=== PATIENT | female | born 1955 | race Caucasian/White ===

== ENCOUNTER 2017-08-11 19:19 | Inpatient (IN) | payer OTHER ==
[2017-08-11] VITALS (16 sets, daily range): BP systolic 90–125; BP diastolic 27–72
[~2017-08-11] VITALS: Ht 152.4 cm; Wt 160.3 kg
--- NOTE | ~2017-08-11 | CON ---
[place], [place] REPORT OF CONSULTATION NAME: KATTY ALBERTO UNIT #: [id number] ROOM: [facility] DOCTOR: CEDRICK SWIFT MD BIRTHDATE: [birth year] DOS: 08/12/2017 PULMONARY CONSULTATION, EVALUATION AND MANAGEMENT CONSULTATION REQUESTED BY: Hospitalist Services. REASON FOR CONSULTATION: For assessment of current change in mental status and acute respiratory failure. HISTORY OF PRESENT ILLNESS: A 61-year-old white female known to me from the past. The patient presented to the hospital Emergency Room. She has been noted with increased shortness of breath occurring for the past 2-3 weeks, but the symptoms have been noted gradually worsen. She has been known with history of congestive heart failure and treated with the diuretics. The patient's shortness breath has been noted significantly worsened, which has been noted progressive and noted severe worsening. The patient went to [facility], and this was noted severely worsened. The symptoms were also associated with chest pain which she described in the left side of chest region radiating to the arm. The diuresis occurred with exertion and relieved at rest, but the pain was described sharp at times. The patient was also noted with increased edema of the lower extremities. She denies any syncopal episodes associated with the current chest pain. Wheezing was noted mild at this time. She has arterial blood gases done as the patient noted unresponsive this morning with significant hypercapnia and reduced pH. She was started BiPAP by Dr. Baig, the patient with setting of 12/6 earlier. This has resulted in partial improvement in the wakefulness. The history from the patient was noted quite limited because of the use of the BiPAP at the present time. However, the patient denies symptoms of chest pain at this time and has not reported symptoms of hemoptysis. REVIEW OF SYSTEMS: CONSTITUTIONAL: This patient was noted with fatigue and tiredness occurring gradually. There were symptoms of fever and chills reported. EYES: Denies any burning, redness or tenderness. EAR, NOSE, THROAT SYMPTOMS: Denies sore throat, hoarseness, otalgia, postnasal drainage or epistaxis. CARDIOVASCULAR: Denies angina pain at this time, but noted with pain which she described similar to the unstable angina prior to admission. No symptoms of palpitations. Noted progressive edema of the lower extremities. GASTROINTESTINAL SYMPTOMS: No dysphagia, nausea, vomiting, diarrhea, abdominal pain, or hematemesis, but noted with symptoms of melena and has been with known history of hemorrhoids. GENITOURINARY SYMPTOMS: Denies any hematuria, dysuria, urinary hesitancy or suprapubic pain. MUSCULOSKELETAL SYMPTOMS: Chronic pain in the joints was reported. There was no acute worsening. SKIN: Denies any abnormal lesions or rashes except breakdown of the skin and the wound was described in the area of the left flank and the groin area with foul-smelling odor discharge. CENTRAL NERVOUS SYSTEM: General weakness and fatigue were reported without any focal neurologic deficit. [place], [place] REPORT OF CONSULTATION NAME: KATTY ALBERTO UNIT #: [id number] ROOM: [facility] DOCTOR: CEDRICK SWIFT MD BIRTHDATE: [birth year] Remaining systems were reviewed with the patient, they were noted all negative. PAST MEDICAL HISTORY: 1. Noted as history of congestive heart failure, but the systolic or diastolic was unknown, probably diastolic dysfunction reported. 2. 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 The lead was extracted from the patient as well as the pacemaker was also removed. There was no endocarditis reported. 3. Bacteremia. The patient with enterococcus. The patient with PICC line was also reported. 4. History of sick sinus syndrome. 5. Reported with COPD and bronchial asthma in the history listed by the primary care attending. 6. History of gastroesophageal reflux. 7. Gastrointestinal bleeding with hemorrhoids. 8. Gastroesophageal reflux. 9. Severe morbid obesity. 10. Paroxysmal atrial fibrillation. 11. Type 2 diabetes mellitus. 12. Vitamin D deficiency. 13. History of complete heart block. PAST SURGICAL HISTORY: The patient was reported as: 1. Cholecystectomy. 2. Colonoscopy. 3. D and C. 3. PICC line previously, which was removed. 4. Pacemaker insertion in the patient with sick sinus syndrome management. The patient later removed with planning of another pacemaker insertion after the improvement in the infection. SOCIAL HISTORY: The patient lives at home. She was reported nonsmoker, lifetime. There was no history of alcohol use or illicit drug use. FAMILY HISTORY: The patient's father at age of 6060 years old with myocardial infarction. Mother is living, 83 years old. HOME MEDICATIONS: Listed as use of ProAir HFA inhaler, Eliquis, vitamin D, Colace, Lasix, loratadine, metoprolol tartrate, omeprazole and other p.r.n. medications. DRUG ALLERGIES: REPORTED ALLERGY TO THE PENICILLINS. PHYSICAL EXAMINATION: GENERAL: A 61-year-old female who has been currently noted lying in the bed. The patient uses a BiPAP, full face mask, setting of 16/12, tidal volume about 250-350 mL. The respiratory recorded as 20. Height noted of a 5 feet, weight of 246 pounds, BMI 67.5 consistent with severe morbid obesity. VITAL SIGNS: The patient recorded as a temperature normal since admission, [place], [place] REPORT OF CONSULTATION NAME: KATTY ALBERTO UNIT #: [id number] ROOM: [facility] DOCTOR: MATHIEU MCKOY MD,CEDRICK BIRTHDATE: [birth year] respiratory rate of 28-14. Heart rate was noted as 112-97 with tachycardia, blood pressure 116/66-127/61. Intake 700, output ____ mL since admission. Pulse oxygen saturation on 2 liters nasal cannula was 99% saturation. Pulse oxygen saturation recorded the BiPAP previously as 93% saturation. HEENT: Limited exam; however, the neck was short and obese. Head was atraumatic. Eyes nonicterus. NECK: Supple. Decreased posterior pharyngeal space, high tongue base and crowding of soft tissue structures. CARDIOVASCULAR: S1, S2 is audible. LUNGS: The patient was noted with moderate general reduction in the breath sounds noted in the lungs bilaterally. ABDOMEN: Noted severe morbid obese. Superficial infection. SKIN: For the patient reported most likely related to either superimposed bacterial infection with a fungal infection involving the skin. Candidiasis would be considered. EXTREMITIES: The patient noted with edema. CENTRAL NERVOUS SYSTEM: Limited examination, the patient will be able to move upper and lower extremities with vocal commands. There was no gross focal neurologic deficit noted at the present time. MUSCULOSKELETAL SYMPTOMS: Noted without any acute deformities. LABORATORY DATA: PT/PTT was done yesterday shows a PT and PTT were normal. CBC of the patient that was done yesterday on admission reported as a normal WBC count, hemoglobin 10.2, hematocrit normal, platelet count were normal. CMP of the patient on 08/11/2017, BUN 37, creatinine 1.64. Glucose 119. Lactic acid 1.2. Troponin noted normal. ProBNP was 2802. CBC of the patient this morning, hemoglobin 9.5, hematocrit 32.4, WBC count normal, platelet count was normal. PT/PTT repeated again normal. Influenza A and B, nasal washing antigen negative today. CMP this morning, BUN 38, creatinine 1.60. Potassium was 5.2. Troponin additional 2 sets were noted normal. Arterial blood gas ____ this morning, pH of 7.19, pCO2 of 82, pO2 40.8, most likely is a venous gas. REVIEW OF THE RADIOLOGY DATA: The chest x-ray of the patient that was done this morning shows very limited study because of large body habitus and pannus covering lower portion of the chest as well with possibility of cardiomegaly with pulmonary edema, congestive heart failure would be considered. Whether there is a pleural fluid right side at this time, was unclear. IMPRESSION: 1. The patient will be currently admitted to the hospital noted with acute congestive heart failure with pulmonary edema with current symptom described with possibility of angina. 2. Superficial infection of the skin most likely due to fungal infection, superimposed bacterial infection cannot be excluded. 3. The patient with acute severe hypercapnic respiratory failure with acute hypoxia as well related to the congestive heart failure. 4. The patient with history of chronic obstructive pulmonary disease, bronchial asthma without any acute exacerbation at this time. 5. History of cardiac issue with dysrhythmias, infection with pacemaker, and others. [place], [place] REPORT OF CONSULTATION NAME: KATTY ALBERTO UNIT #: [id number] ROOM: [facility] DOCTOR: CEDRICK SWIFT MD BIRTHDATE: [birth year] 6. The patient with tachycardia with history of atrial fibrillation as well. 7. Possibility of bleeding with current symptoms. The patient was also reported with mild anemia. 8. Suspicion of obstructive sleep apnea for current large body habitus. PLAN OF TREATMENT: The patient stated that she had not been tested or diagnosed with obstructive sleep apnea disorder in the past. PLAN OF MANAGEMENT: Adjustment of the BiPAP has been made for change in the BiPAP settings of 18/8 to get a good ventilation and improvement in oxygenation. Arterial blood gas will be done 2 hours after the change of the BiPAP, the tidal volume has been increased from 350 mL to 550 mL to 600 mL with the rate was noted about 16-18. The patient will be given bronchodilators as needed. She has been already started intravenous antibiotics, vancomycin and cefepime. The cultures of the wound site to be done for assessment of fungal or bacterial infections. Other supportive therapy, plan and management to be changed based on progression of illness. Diuretic therapy, medical maintenance, congestive heart failure per Cardiology services will be continued. Deep venous thrombosis prophylaxis with SCDs could be given. The anticoagulation at this time placed on hold because of the current suspected gastrointestinal bleeding with previous evening on Eliquis. Thanks for allowing me to participate in the care of this patient. CEDRICK MURDOCK MD CM:CONSTR:REPORT OF CONSULTATION 1306 08/13/17 1345 interface
--- NOTE | ~2017-08-11 | CON ---
[place], [place] REPORT OF CONSULTATION NAME: KATTY ALBERTO UNIT #: [id number] ROOM: [facility] DOCTOR: RON COOPER,AUGUST BIRTHDATE: [birth year] DOS: 08/15/2017 HISTORY OF PRESENT ILLNESS: The patient is a 61-year-old morbidly obese female who was admitted on the August 11. She was stuck on her commode and unable to get up, and had to call emergency services. She has had progressively worsening shortness of breath and increasing edema over the last 2-3 weeks. She has been receiving BiPAP since admission and they have been trying to aggressively diurese her. She was on Lasix 80 mg IV every 8 hours and now she is on a Bumex drip. Her creatinine has been rising. She was initially afebrile, but she did have an infected wound on her left flank in one of her rolls. Cultures from that have grown fairly sensitive Proteus. She was initially on vancomycin and cefepime. The vancomycin was stopped. Cefepime was continued for the Proteus. Her admitting blood cultures were negative. Her influenza was negative. Her MRSA was screen negative. She spiked a temperature last night of 101, leading to an Infectious Diseases consult. Reviewing her imaging, which the x-rays are limited given the patient's size, she is 5 feet tall and 354 pounds, show cardiomegaly and pulmonary edema. History is obtained per review of the chart and discussion with nursing. The patient is complaining of dry mouth. She has had steadily decreasing urine output as well according to nursing. Temps are more low grade today to 99.3. Her cefepime was only at 1 gram IV daily given her renal insufficiency. Creatinine was 1.64 on admission and again today is up to 1.94. PAST MEDICAL HISTORY: As above as well as CHF, again morbid obesity, recent removal in May of this year of an infected pacemaker with infection by enterococcus. She completed ampicillin on June 24. She was scheduled to have replacement pacemaker scheduled on August 16, paroxysmal AFib, bradycardia and complete heart block, essential hypertension, chronic renal insufficiency, chronic respiratory failure, diabetes, morbid obesity. ALLERGIES: Include PENICILLINS and LATEX. FAMILY MEDICAL HISTORY: Father had an NV in his 60s. Mother is alive in her 80s. SOCIAL HISTORY: Nonsmoker, nondrinker. No illicit drug use. Normally lives at home. CURRENT MEDICATIONS: Bumex, vancomycin, Zaroxolyn, Lopressor, Eliquis, Humalog, vitamin D, cefepime, Claritin, Protonix, DuoNeb, nystatin topically, Zofran, Dulcolax, Tylenol. REVIEW OF SYSTEMS: Obtained mostly per nursing as the patient herself is currently on BiPAP, difficult to obtain review of systems from. Does have pain with her left flank wound. No emesis. No diarrhea. No rashes. She had originally presented with significant yeast, which has improved. Again, she was febrile yesterday to 101, more low grade today, remains on BiPAP, complaining of dry oral mucosa, has significant systemic edema. She did have an echocardiogram that showed no vegetation. [place], [place] REPORT OF CONSULTATION NAME: KATTY ALBERTO UNIT #: [id number] ROOM: [facility] DOCTOR: RON COOPER,AUGUST BIRTHDATE: [birth year] PHYSICAL EXAMINATION: VITAL SIGNS: Temperature 99.3, pulse 96, respirations 22, BP 125/78: GENERAL: A 61-year-old morbidly obese female, in no acute distress, on face mask BiPAP. HEAD, EYES, EARS, NOSE AND THROAT: Normocephalic, tacky mucosa. NECK: Supple. LUNGS: Clear to auscultation bilaterally, though difficult to auscultate given body habitus. HEART: Regular rhythm. Unable to appreciate murmur. Again, difficult to auscultate given body habitus. ABDOMEN: Soft, huge, pitting edema of the pannus and flanks. EXTREMITIES: With significant edema of lower extremities as well. No signs of cellulitis. She has [address] No phlebitis. Left flank wound is 1-2 cm in depth, fibrotic with foul odor and some surrounding induration, a small amount of purulent discharge. SKIN: Otherwise warm, dry, free of rashes. ASSESSMENT AND PLAN: Infected left flank wound. She needs to have anaerobic coverage. If frequently does not grow from swab cultures, would benefit from debridement. She is being followed by Dr. Cabrera with Surgery, as removal of the tissue would aid in clearing the infection. Her fever of 101 is likely due to volume contraction from aggressive diuresis. She is now currently on a Bumex drip at this point. Her methicillin-resistant Staphylococcus aureus screen was negative. We will stop the vancomycin. We could narrow her antibiotics to Ancef and Flagyl. She did have gram-positive cocci in pairs on the culture as well. This may be again anaerobe that did not grow out that was on the Gram stain. Case discussed with Dr. Itz Escalante. EMELY RON, KENNETH ITZ ESCALANTE MD CM:CONSTR:REPORT OF CONSULTATION 1750 08/16/17 0245 interface
--- NOTE | ~2017-08-11 | PR ---
[place], [place] PROGRESS NOTE NAME: KATTY ALBERTO UNIT #: [id number] ROOM: [facility] DOCTOR: MATHIEU MCKOY MD,CEDRICK BIRTHDATE: [birth year] DOS: 08/15/2017 SUBJECTIVE: She remains comfortable at this time, lying in the bed in the Intensive Care Unit. She has not been noted symptoms of chest pain or hemoptysis. Denies symptoms of abdominal pain. Denies symptoms of nausea or vomiting. Denies any blurry vision or headache or diplopia. Remaining systems were reviewed, they were noted all negative. She has been using the BiPAP at this time and appeared to be comfortable lying on the bed. OBJECTIVE: VITAL SIGNS: She was noted a fever low grade of 100.8-101 degree Fahrenheit. Afebrile. Respiratory rate 21-26. The heart rate of 96-102, blood pressure 116/55-125/70. Pulse oxygen saturation on 40% oxygen 96% saturation. A nasal cannula supplementation oxygen 85% saturation. HEENT: Head was atraumatic. Eyes nonicterus. NECK: Supple. It was obese. CARDIOVASCULAR SYSTEM: S1, S2 is audible. LUNGS: General reduction in breath sounds bilaterally. ABDOMEN: Soft, nontender. EXTREMITIES: Chronic obesity. SKIN VISIBLE: No lesions or rashes. MUSCULOSKELETAL SYMPTOMS: Without any acute deformities. CENTRAL NERVOUS SYSTEM: The patient appeared to be grossly intact. LABORATORY DATA: Chest x-ray was noted with possibility of pulmonary edema and/or infiltration, superimposed cannot be completely excluded very limited study noted with very large body habitus. Previous wound culture has been noted Proteus mirabilis. IMPRESSION: 1. The patient who has been noted with acute persistent respiratory failure with hypercapnia. 2. Severe morbid obesity. 3. Wound infection of the skin. 4. Possibility of congestive heart failure, pulmonary edema along with pneumonia superimposed cannot be completely excluded. 5. Fever was noted intermittently as well. PLAN OF MANAGEMENT: The patient is currently getting the intravenous cefepime, which has been previously given. She was started on vancomycin in addition to the continuation gram-negative coverage. Monitor culture results. Obtain blood cultures if not done for today with the fever. Usual care, other supportive therapy, plan of management and other care. Additional treatment changes need to be made based on the progression of the illness. [place], [place] PROGRESS NOTE NAME: KATTY ALBERTO UNIT #: [id number] ROOM: [facility] DOCTOR: MATHIEU MCKOY MD,CEDRICK BIRTHDATE: [birth year] CEDRICK MURDOCK MD CM:PNBILL [id number] CEDRICK MCKOY MD 08/15/172113 interface
--- NOTE | ~2017-08-11 | PR ---
[place], [place] PROGRESS NOTE NAME: KATTY ALBERTO UNIT #: [id number] ROOM: [facility] DOCTOR: MATHIEU MCKOY MD,CEDRICK BIRTHDATE: [birth year] DOS: 08/16/2017 SUBJECTIVE: She has been noted awake and alert this morning, using oxygen supplementation nasal cannula, used the BiPAP last night, has not been reported any symptoms of chest pain. She has not been feeling well this morning. Denies any abdominal pain, nausea, vomiting or diarrhea. She has not been noted with any evidence of hypotension. The temperature curve noted to be afebrile. Mild tachycardia has been noted intermittently. She was given intravenous Bumex drip in the last 24 hours with suboptimal diuresis noted, total of 675 mL urinary output was noted. Remaining systems were reviewed. They were noted all negative. PHYSICAL EXAMINATION: VITAL SIGNS: Temperature 99.4 degree Fahrenheit, normal temperature, respiratory rate 22-19, heart rate of 107, blood pressure 124/53-107/54. Pulse oxygen saturation on 2 liters nasal cannula 96% saturation. HEENT: Chronic obesity. Head was atraumatic. Eyes, nonicterus. NECK: Supple. CARDIOVASCULAR: S1, S2 is audible. LUNGS: The patient was noted with moderate decreased breath sounds bilaterally. ABDOMEN: Severely obese. Bowel sounds present. EXTREMITIES: The patient was noted with minimal edema. VISIBLE SKIN: No lesions or rashes. MUSCULOSKELETAL: Without any acute deformities. CENTRAL NERVOUS SYSTEM: No focal deficit. LABORATORY DATA: BMP today: BUN 52, creatinine 2.18, glucose 156. Remaining electrolytes normal. CBC: Hemoglobin 9, hematocrit 31.0, WBC count and platelet count was normal. Arterial blood gas 2 liters, pH of 7.25, pCO2 of 67, pO2 59.9. IMPRESSION: 1. The patient who has been currently noted with persistent acute on chronic hypercapnic respiratory failure, hypoxia with congestive heart failure and pulmonary edema. 2. Severe morbid obesity, suspected obstructive sleep apnea disorder. 3. History of heart block, past pacemaker, which was removed. 4. Localized infection of the skin was also noted. PLAN OF MANAGEMENT: Continuation of the bronchodilators, oxygen supplementation and use of the BiPAP with previous settings most of the time. The patient has been ordered and consulted by the Nephrology services, has pending consultation at this time to assess the patient's acute kidney injury, suboptimal diuresis. Continue in the meantime, other supportive therapy, plan of management and care plan. Usual care. [place], [place] PROGRESS NOTE NAME: KATTY ALBERTO UNIT #: [id number] ROOM: [facility] DOCTOR: CEDRICK SWIFT MD BIRTHDATE: [birth year] CEDRICK MURDOCK MD CM:PNTRANS [id number] [id number] CEDRICK MCKOY MD 08/17/17 0039 interface
--- NOTE | ~2017-08-11 | CON ---
[place], [place] REPORT OF CONSULTATION NAME: KATTY ALBERTO UNIT #: [id number] ROOM: [facility] DOCTOR: JUSTINE SHELTON MD BIRTHDATE: [birth year] DOS: 08/12/2017 REASON FOR CONSULTATION: Acute heart failure. HISTORY OF PRESENT ILLNESS: The patient is a 61-year-old woman who does have a long history of conduction system disorder, paroxysmal atrial fibrillation and sick sinus syndrome. She also has morbid obesity and chronic heart failure with normal systolic function and ejection fraction. She is typically followed by the [facility] of the [facility] in [place]. She presented to the hospital with acute heart failure and heart block in May 2015. She was on beta blockers and amiodarone at that time. The antiarrhythmics were stopped and dual chamber pacemaker was inserted. She has been maintained on Xarelto throughout this time. In 05/2017, she was seen at the [facility] with an acute illness. Blood cultures were positive for gram-positive cocci in chain in 2 out of 2 bottles. She was transferred to the [facility] where she underwent a lead extraction and pacemaker device extraction for pacemaker infection. A KONG done at that time did not show evidence for endocarditis. She was treated with ampicillin intravenously via PICC line for enterococcal bacteremia from May until 06/24/2017. The PICC line was removed at that time. She was subsequently cleared to have her pacemaker reinserted. She was evaluated by Dr. Angel Barbour on 06/09/2017 as an outpatient. 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 After she was cleared by Infectious Disease, plans were made for her to undergo insertion of a new dual chamber pacemaker in the right subclavian fossa on 07/23/2017. For some reason, the procedure was delayed and the pacemaker has not yet been reimplanted but she states that she is scheduled to have the device placed on 08/16/2017. The patient presented to the Emergency Room yesterday with progressively worsening dyspnea over 2-3 weeks. She was given furosemide in the Emergency Room and her chest x-ray did show evidence for vascular congestion. She was diuresed and admitted to the Intensive Care Unit. Overnight, she did develop worsening sensorium and decreased level of consciousness. This morning, she is barely arousable. A stat blood gas done this morning showed a pH of 7.19 with a pCO2 of 82.6 and a pO2 of 40.8. She was felt to have an acute respiratory acidosis and acute on chronic hypercarbic respiratory failure. She has been placed on BiPAP and a repeat blood gas is pending. PAST MEDICAL HISTORY: Includes: 1. Conduction system disorder with paroxysmal atrial fibrillation, bradycardia, and complete heart block. 2. Essential hypertension. 3. Chronic renal insufficiency. 4. Chronic respiratory failure. 5. Chronic heart failure with preserved ejection fraction. 6. History of pacemaker for complete heart block inserted 05/2015. 7. Pacemaker system removal 05/2017 for enterococcal bacteremia. [place], [place] REPORT OF CONSULTATION NAME: KATTY ALBERTO UNIT #: [id number] ROOM: [facility] DOCTOR: JUSTINE SHELTON MD BIRTHDATE: [birth year] 8. Diabetes mellitus. 9. Morbid obesity. REVIEW OF SYSTEMS: Currently impossible since the patient is obtunded and not responding appropriately to questions. MEDICATIONS PRIOR TO ADMISSION: Albuterol 2 puffs q.i.d., acetaminophen p.r.n., apixaban 5 mg b.i.d., cholecalciferol 1000 units daily, docusate 100 mg daily, furosemide 40 mg p.o. daily, loratadine 10 mg daily, metoprolol tartrate 75 mg p.o. b.i.d., multivitamin once a day, omeprazole 40 mg daily. ALLERGIES: The patient lists allergies to PENICILLINS and LATEX. FAMILY HISTORY: The patient's father of a myocardial infarction in his 60s. Her mother is alive in her 80s. SOCIAL HISTORY: The patient does not smoke, use alcohol or illicit drugs. PHYSICAL EXAMINATION: GENERAL: The patient is a morbidly obese white female who is obtunded but responds to voice and pain. VITAL SIGNS: Pulse is 100 and irregularly irregular. Blood pressure is 127/61, respiratory rate is 28. She weighs 156.9 kg and has a body mass index of 67.6. HEENT: Normocephalic and atraumatic. Extraocular muscles are intact. Sclerae are clear. Oral mucosa is moist. Tongue is midline. NECK: Supple. I could not determine if she had jugular distention because of fat in her neck. LUNGS: Respirations are somewhat labored and tachypneic. She does have markedly decreased breath sounds bilaterally. CARDIOVASCULAR: Her heart has distant tones. She does have an irregularly irregular rhythm. I could not tell if she had gallops or murmurs. ABDOMEN: Massively obese. She does have skin over her abdomen and thighs. She does have intertrigo, especially in the right groin area. Nurses report that she does have other lesions in her skin folds as well and she is malodorous on exam. EXTREMITIES: Do show 3-4+ edema of the legs. Pedal pulses could not be felt. LABORATORY DATA: I reviewed the electrocardiogram, which showed atrial fibrillation with a rate of about 100. There are nonspecific ST and T-wave changes present. Hemoglobin is 9.5 with hematocrit 32.4, white count is 7000, platelet count 201,000. Sodium is 140, potassium 5.2, chloride 105, CO2 29, BUN 38, creatinine 1.6. Serial troponin levels have been unremarkable. TSH is 2.26. ProBNP is 2802. Total protein is 8.3 with an albumin of 2.3. A stat blood gas this morning shows a pH of 7.19, pCO2 of 82.6, pO2 of 40.8, bicarbonate of 30.4. An echocardiogram was done this morning and I reviewed it briefly at the bedside. It shows normal left ventricular size, wall thickening, regional wall motion and systolic function with an ejection fraction exceeding 60%. [place], [place] REPORT OF CONSULTATION NAME: KATTY ALBERTO UNIT #: [id number] ROOM: [facility] DOCTOR: JUSTINE SHELTON MD BIRTHDATE: [birth year] IMPRESSION: 1. Acute on chronic heart failure with preserved left ventricular ejection fraction. 2. History of conduction system disorder with paroxysmal atrial fibrillation and periods of complete heart block. Her commercial real estate associate, Dr. Angel Barbour, noted that she did not tolerate atrial fibrillation well and frequently would develop symptoms of heart failure when in atrial fibrillation. He felt therefore that it was imperative that we do what we can to get her back into sinus rhythm and he felt that this would require reinsertion of her pacemaker. This was scheduled for the near future. 3. Partially compensated acute respiratory acidosis. 4. Acute on chronic hypercarbic respiratory failure. 5. Diabetes. 6. Hypertension. PLAN: The patient will be diuresed and treated with BiPAP for her respiratory failure. Once her hemodynamics have been corrected and her fluid balance is more appropriate, we will discuss with her and her commercial real estate associate the possibility of moving her to [place] for placement of a permanent dual chamber pacemaker and subsequent cardioversion as well as possible antiarrhythmic therapy. [facility] and I thank the hospitalist physicians at [facility] for asking our advice regarding her care. JUSTINE SHELTON MD CM:CONSTR:REPORT OF CONSULTATION [id number] 08/12/17 0925 interface
--- NOTE | ~2017-08-11 | PR ---
[place], [place] PROGRESS NOTE NAME: KATTY ALBERTO UNIT #: [id number] ROOM: [facility] DOCTOR: CEDRICK SWIFT MD BIRTHDATE: [birth year] DOS: 08/13/2017 SUBJECTIVE: The patient has been noted much more awake and alert this morning, had used the BiPAP as ordered. The patient has been using oxygen supplementation other times as well. She denies symptoms of a chest pain. There were no symptoms of hemoptysis. Denies any symptoms of edema or pain of the lower extremities. The patient has a wound in the left flank and the inguinal area for the patient, which has been currently treated with the medication including antibiotics and local care. The wound culture of the patient was taken, which shows moderate growth of gram-negative bacilli for the patient at this time with pending final results. This morning, the patient was noted denying any symptoms of abdominal pain, nausea, vomiting or diarrhea. OBJECTIVE: VITAL SIGNS: For the patient which were recorded, showed the temperature noted normal, respiratory rate 19-20, heart rate 113-90, blood pressure 107/46-94/60. Pulse oxygen saturation on 2 liters nasal cannula 98% saturation. The BiPAP was 98%-100% saturation. HEENT: Examination shows head was atraumatic. Eyes nonicterus. NECK: Short and obese. Decreased posterior pharyngeal space. CARDIOVASCULAR: S1, S2 audible. LUNGS: Noted with decreased breath sounds in the lungs bilaterally. ABDOMEN: Noted with severe morbid obesity. Bowel sounds present without tenderness. EXTREMITIES: With resolving edema of the lower extremities. SKIN: No lesions or rashes. MUSCULOSKELETAL: Without any acute deformities. CENTRAL NERVOUS SYSTEM: No focal deficit. The remaining systems were reviewed, they were noted all negative. LABORATORY DATA: Labs of patient that were done today, BUN 40, creatinine 1.60. Remaining BMP was normal. CBC this morning, hemoglobin 9.1, hematocrit 31.8, platelet count was normal. Gram stain of the wound of the flank and the groin area of the patient noted few white blood cells, moderate gram-positive cocci in pairs with few gram-negative bacilli. Moderate growth of the patient presumably noted the cultures with pending final result. Ultrasound of the left breast was also done that reported evidence of acute edema. The arterial blood gas 2 liters nasal cannula this morning, pH of 7.31, pCO2 of 60.1, and pO2 of 85.5. IMPRESSION: 1. The patient who has been noted a gradual but progressive improvement and the resolution of acute hypercapnic and hypoxic respiratory failure. 2. The patient with history of sick sinus syndrome. The patient's last heart block for this patient with previous pacemaker, which was removed. 3. Localized skin infection as well in the abdomen and the groin area noted in the left side. 4. The patient with a history of chronic obstructive pulmonary disease as well. 5. Severe morbid obesity with suspicion of obstructive sleep apnea disorder. [place], [place] PROGRESS NOTE NAME: KATTY ALBERTO UNIT #: [id number] ROOM: [facility] DOCTOR: MATHIEU MCKOY MD,CEDRICK BIRTHDATE: [birth year] PLAN OF THERAPY: At this time, the patient will continue diuretic therapy, bronchodilators, monitor kidney functions closely. Continuation of bronchodilators and use of the BiPAP as ordered intermittent during the day and continue at nighttime or to be used at the time of any respiratory distress. Titrate oxygen supplementation, maintain pulse ox saturation 92% or greater. Continue antibiotic. She changes back to the patient after the final culture results of the current wound. Additional treatment changes for the patient to be made based on progression of the illness. CEDRICK MURDOCK MD CM:PNTRANS [id number] CEDRICK MCKOY MD 08/14/17 0017 interface
--- NOTE | ~2017-08-11 | PR ---
[place], [place] PROGRESS NOTE NAME: KATTY ALBERTO UNIT #: [id number] ROOM: [facility] DOCTOR: CEDRICK SWIFT MD BIRTHDATE: [birth year] DOS: 08/14/2017 PULMONARY PROGRESS NOTE SUBJECTIVE: She has been resting comfortably on the bed at this time, has not been noted and symptoms of chest pain or hemoptysis. Shortness of breath and mental status changes all noted progressively improved. She was continued on diuretic therapy for the medical and acute congestive heart failure. BiPAP has been used for the patient, currently at nighttime, intermittently during the day this morning, using oxygen supplementation and cannula. OBJECTIVE: VITAL SIGNS: Low grade fever noted 99.8 degree Fahrenheit, respiratory rate 18, heart rate 92, blood pressure 100/42. Pulse oxygen saturation on 2 liters nasal cannula 100% saturation recorded. HEENT: Examination shows head was atraumatic. Eyes nonicterus. NECK: Supple. CARDIOVASCULAR: S1, S2 audible. LUNGS: The patient was noted without any wheezing or crackles at this time anterolateral auscultation. ABDOMEN: Soft with morbid obese. EXTREMITIES: Resolving edema. LABORATORY DATA: CBC of the patient's hemoglobin 8.4, WBC count and platelet count normal. Wound culture, Proteus mirabilis. BMP: BUN of 42, creatinine 1.62. Stool for occult blood was noted as negative. IMPRESSION: 1. The patient with acute wound infection, resolving acute congestive heart failure, progressively. 2. Morbid obesity. 3. Atrial fibrillation/flutter. Tachycardia was noted at times. PLAN OF MANAGEMENT: Adjustments of the antibiotic based on the culture results. Discontinuation of the IV vancomycin is not needed. Continue the other antibiotic for the medical and gram-negative infection coverage for the patient as cefepime. Obtain a chest x-ray of the patient preferred with PA lateral view to determine the improvement and resolution of congestive heart failure. [place], [place] PROGRESS NOTE NAME: KATTY ALBERTO UNIT #: [id number] ROOM: [facility] DOCTOR: CEDRICK SWIFT MD BIRTHDATE: [birth year] CEDRICK MURDOCK MD CM:PNTRANS [phone] CEDRICK MCKOY MD 08/15/17 0100 interface
--- NOTE | ~2017-08-11 | PR ---
[place], [place] PROGRESS NOTE NAME: KATTY ALBERTO UNIT #: [id number] ROOM: [facility] DOCTOR: JUSTINE SHELTON MD BIRTHDATE: [birth year] DOS: 08/13/2017 SUBJECTIVE: The patient was seen at her bedside in the intensive care unit today, 08/13/2017, for followup of her heart failure with preserved left ventricular function, sick sinus syndrome and acute on chronic respiratory failure. Since yesterday, she has been intermittently on BiPAP and her respiratory status has at least transiently improved. She has not diuresed dramatically, but she is in negative fluid balance. She is much more awake and alert. She states today that she has gone to the Emergency Room at the [facility] on several occasions with complaints of dyspnea. She states that they treated her with breathing treatments and sent her on her way. She was not effectively diuresed during any of those visits. The patient denies any chest pain. She remains in atrial fibrillation. PHYSICAL EXAMINATION: VITAL SIGNS: Today her pulse is 100 and irregularly irregular, blood pressure is 107/46. She is afebrile. NECK: Supple. She has jugular distention and hepatojugular reflux, but it is difficult to see because of her neck girth. LUNGS: Respirations are unlabored at rest, but she does have rales about one-third of the way up posteriorly. She has decreased breath sounds bilaterally as well. There are no wheezes. HEART: Has an irregularly irregular rhythm without murmurs or gallops. The PMI could not be felt. ABDOMEN: Markedly distended with peau d'orange skin. The abdomen is hard to palpation because of subcutaneous fluid. EXTREMITIES: Peripheral edema is present and graded at 4+. LABORATORY DATA: Sodium today is 142 with potassium 4.1, chloride 107, CO2 of 28, BUN 41, creatinine 1.6. An echocardiogram was done on 08/12/2017 and showed normal left ventricular size, wall motion and systolic function with an ejection fraction estimated to be about 60%. Diastole could not be assessed. The study was limited due to poor windows. IMPRESSION: 1. Acute on chronic heart failure with preserved left ventricular ejection fraction. 2. History of conduction system disorder with paroxysmal atrial fibrillation and periods of complete heart block. 3. Acute respiratory failure with CO2 retention. 4. Acute on chronic hypercapnic respiratory failure. 5. Diabetes. 6. Hypertension. 7. Multiple skin infections with intertrigo. PLAN: We will continue to diurese her. Today, I did add spironolactone to try to help improve the effectiveness of her furosemide. If this is not helpful, [place], [place] PROGRESS NOTE NAME: KATTY ALBERTO UNIT #: [id number] ROOM: [facility] DOCTOR: CAT SUN,JUSTINE BIRTHDATE: [birth year] metolazone might be a next step. Nephrology help may also be necessary. Once she is much more euvolemic and her skin infections have been managed, we will plan on proceeding with the insertion of a DDD pacemaker and subsequent cardioversion as was the initial plan of the nutrition counselor. For now, I do not believe that she is a good candidate for any intravascular procedures for insertion of pacemaker, etc. I thank the hospitalist physicians for asking our advice regarding her care. JUSTINE SHELTON MD CM:PNTRANS [id number] JUSTINE SHELTON MD 08/13/17 1012 interface
[2017-08-11] MEDS ORDERED: ELIQUIS5 M1 PO ×2 (19:30→19:42)
[2017-08-11] MEDS ORDERED: VITAMIN D31000 UNI1 PO ×2 (19:31→19:42)
[2017-08-11] MEDS ORDERED: WOMEN'S DAILY1 EAC1 PO (19:43)
[2017-08-11] MEDS ORDERED: METOPROLOL TART75 MG PO (19:43)
[2017-08-11] MEDS ORDERED: GOOD NEIGHBOR P10 M1 PO (19:43)
[2017-08-11] MEDS ORDERED: OMEPRAZOLE40 MG PO (19:44)
[2017-08-11] MEDS ORDERED: DOC-Q-LACE100 MG PO (19:44)
[2017-08-11] MEDS ORDERED: LASIX40 MG PO (19:44)
[2017-08-11] MEDS ORDERED: MAPAP500 MG PO (19:45)
[2017-08-11] MEDS ORDERED: PROAIR HFA8.5 GM INH (19:45)
[2017-08-11 20:21] LABS: ACT PARTIAL THROMBO TIME 22.5 SECONDS (20.8-31.5); INTERNATIONAL NORM RATIO 1.2 (2.0-3.5)
[2017-08-11 20:27] LABS: BASO % 0.3 % (0.0-1.0); EOS # 0.2 10*3/uL (0.0-0.4); EOS % 2.8 % (1.0-4.0); HEMATOCRIT 35.5 % (37.0-47.0); HEMOGLOBIN 10.2 g/dl (12.0-16.0); LYMPH # 1.5 10*3/uL (1.3-4.4); LYMPH % 22.9 % (27.0-41.0); MEAN CELL VOLUME 95.2 fl (81.0-99.0); MEAN CORPUSCULAR HGB 27.3 pg (27.0-31.0); MEAN CORPUSCULAR HGB CONC 28.7 g/dl (33.0-37.0); MEAN PLATELET VOLUME 10.2 fl (9.6-12.3); MONO # 0.6 10*3/uL (0.1-1.0); MONO % 9.2 % (3.0-9.0); NEUT # 4.1 10*3/uL (2.3-7.9); NEUT % 64.5 % (47.0-73.0); PLATELET COUNT AUTOMATED 189 10*3/uL (130-400); RED BLOOD COUNT 3.73 10*6/uL (4.10-5.10); RED CELL DISTRI WIDTH 15.9 % (0-14.5); WHITE BLOOD COUNT 6.3 10*3/uL (4.8-10.8)
[2017-08-11 20:30] LABS: ALBUMIN 2.2 gm/dl (3.1-4.5); ALKALINE PHOSPHATASE 62 U/L (45-117); BUN 37 mg/dl (7-24); CHLORIDE 106 mmol/L (98-107); CREATININE 1.64 mg/dL (0.55-1.02); POTASSIUM 4.9 mmol/L (3.5-5.1); SGOT/AST 42 IU/L (3-35); SGPT/ALT 14 U/L (12-78); SODIUM 140 mmol/L (136-145); TOTAL PROTEIN 8.2 gm/dL (6.4-8.2)
[2017-08-11 20:32] LABS: TROPONIN I < 0.015 ng/ml (<0.045)
[2017-08-12 00:35] LABS: BILIRUBIN NEGATIVE (NEGATIVE); BLOOD TRACE-LYSED (NEGATIVE); CLARITY SL CLOUDY (CLEAR); COLOR YELLOW (YELLOW); GLUCOSE NEGATIVE (NEGATIVE); KETONE NEGATIVE (NEGATIVE); LEUKO ESTERASE NEGATIVE (NEGATIVE); NITRITE NEGATIVE (NEGATIVE); SPECIFIC GRAVITY 1.015 (1.005-1.030); UROBILINOGEN 0.2 E.U./dl (0.2-1.0)
[2017-08-12 00:50] LABS: WBC 0-2 wbc/hpf (0-5)
[2017-08-12 04:00] VITALS: BP 127/61
[2017-08-12 04:00] LABS: BASO % 0.4 % (0.0-1.0); EOS # 0.2 10*3/uL (0.0-0.4); HEMATOCRIT 32.4 % (37.0-47.0); HEMOGLOBIN 9.5 g/dl (12.0-16.0); LYMPH # 1.7 10*3/uL (1.3-4.4); LYMPH % 24.9 % (27.0-41.0); MEAN CELL VOLUME 96.4 fl (81.0-99.0); MEAN CORPUSCULAR HGB 28.3 pg (27.0-31.0); MEAN CORPUSCULAR HGB CONC 29.3 g/dl (33.0-37.0); MEAN PLATELET VOLUME 10.5 fl (9.6-12.3); MONO # 0.6 10*3/uL (0.1-1.0); MONO % 8.5 % (3.0-9.0); NEUT # 4.4 10*3/uL (2.3-7.9); NEUT % 62.8 % (47.0-73.0); PLATELET COUNT AUTOMATED 201 10*3/uL (130-400); RED BLOOD COUNT 3.36 10*6/uL (4.10-5.10)
[2017-08-12 04:10] LABS: ACT PARTIAL THROMBO TIME 23.5 SECONDS (20.8-31.5); INTERNATIONAL NORM RATIO 1.1 (2.0-3.5)
[2017-08-12 04:16] LABS: ALBUMIN 2.3 gm/dl (3.1-4.5); CREATININE 1.6 mg/dL (0.55-1.02); PHOSPHOROUS 4.3 mg/dL (2.5-4.9); POTASSIUM 5.2 mmol/L (3.5-5.1); TOTAL PROTEIN 8.3 gm/dL (6.4-8.2)
[2017-08-12 04:22] LABS: THYROID STIM HORMONE (HS) 2.26 uIU/ml (0.358-4.75)
[2017-08-12 08:00] VITALS: BP 90/35
[2017-08-12 08:08] LABS: ABG BASE EXCESS 0.9 mmol/L (-2.0-2.0); ABG HCO3 30.4 mmol/l (22-26); ABG O2 SATURATION 66.4 % (95-97); ARTERIAL BLOOD GAS PO2 40.8 mmHg (80-90)
[2017-08-12 08:12] LABS: ARTERIAL BLOOD GAS PCO2 82.6 mmHg (35-45)
[2017-08-12 08:13] LABS: ARTERIAL BLOOD GAS PH 7.19 (7.35-7.45)
[2017-08-12 11:51] LABS: ABG BASE EXCESS 1.6 mmol/L (-2.0-2.0); ABG HCO3 28.4 mmol/l (22-26); ABG O2 SATURATION 97.2 % (95-97); ARTERIAL BLOOD GAS PCO2 60.1 mmHg (35-45); ARTERIAL BLOOD GAS PH 7.295 (7.35-7.45); ARTERIAL BLOOD GAS PO2 92.2 mmHg (80-90)
[2017-08-12 12:00] VITALS: BP 94/60
[2017-08-12 16:00] VITALS: BP 100/60
[2017-08-12 20:00] VITALS: BP 118/61
[2017-08-13] VITALS: BP 113/64
[2017-08-13 04:00] VITALS: BP 103/46
[2017-08-13 04:35] LABS: BASO % 0.5 % (0.0-1.0); EOS # 0.2 10*3/uL (0.0-0.4); EOS % 2.6 % (1.0-4.0); HEMATOCRIT 31.8 % (37.0-47.0); HEMOGLOBIN 9.1 g/dl (12.0-16.0); LYMPH # 1.8 10*3/uL (1.3-4.4); LYMPH % 28.4 % (27.0-41.0); MEAN CELL VOLUME 96.4 fl (81.0-99.0); MEAN CORPUSCULAR HGB 27.6 pg (27.0-31.0); MEAN CORPUSCULAR HGB CONC 28.6 g/dl (33.0-37.0); MEAN PLATELET VOLUME 10.5 fl (9.6-12.3); MONO # 0.8 10*3/uL (0.1-1.0); MONO % 12.7 % (3.0-9.0); NEUT # 3.6 10*3/uL (2.3-7.9); NEUT % 55.6 % (47.0-73.0); PLATELET COUNT AUTOMATED 156 10*3/uL (130-400); RED CELL DISTRI WIDTH 15.9 % (0-14.5); WHITE BLOOD COUNT 6.5 10*3/uL (4.8-10.8)
[2017-08-13 04:48] LABS: CREATININE 1.6 mg/dL (0.55-1.02)
[2017-08-13 04:50] LABS: POTASSIUM 4.1 mmol/L (3.5-5.1)
[2017-08-13 07:35] LABS: ABG BASE EXCESS 3.2 mmol/L (-2.0-2.0); ABG HCO3 29.7 mmol/l (22-26); ABG O2 SATURATION 96.6 % (95-97); ARTERIAL BLOOD GAS PCO2 60.1 mmHg (35-45); ARTERIAL BLOOD GAS PH 7.314 (7.35-7.45); ARTERIAL BLOOD GAS PO2 85.5 mmHg (80-90)
[2017-08-13 08:00] VITALS: BP 107/46
[2017-08-13 12:00] VITALS: BP 98/38
[2017-08-13 16:00] VITALS: BP 105/63
[2017-08-13 20:00] VITALS: BP 116/57
[2017-08-14] VITALS: BP 124/72
[2017-08-14 04:00] VITALS: BP 97/51
[2017-08-14 05:46] LABS: BASO % 0.4 % (0.0-1.0); EOS # 0.2 10*3/uL (0.0-0.4); EOS % 3.5 % (1.0-4.0); HEMATOCRIT 29.6 % (37.0-47.0); HEMOGLOBIN 8.4 g/dl (12.0-16.0); LYMPH # 1.7 10*3/uL (1.3-4.4); LYMPH % 30.2 % (27.0-41.0); MEAN CELL VOLUME 96.7 fl (81.0-99.0); MEAN CORPUSCULAR HGB 27.5 pg (27.0-31.0); MEAN CORPUSCULAR HGB CONC 28.4 g/dl (33.0-37.0); MEAN PLATELET VOLUME 10.4 fl (9.6-12.3); MONO # 0.6 10*3/uL (0.1-1.0); MONO % 11.1 % (3.0-9.0); NEUT # 3.1 10*3/uL (2.3-7.9); NEUT % 54.6 % (47.0-73.0); PLATELET COUNT AUTOMATED 164 10*3/uL (130-400); RED BLOOD COUNT 3.06 10*6/uL (4.10-5.10); RED CELL DISTRI WIDTH 15.9 % (0-14.5); WHITE BLOOD COUNT 5.7 10*3/uL (4.8-10.8)
[2017-08-14 05:49] LABS: ALBUMIN 2.6 gm/dl (3.1-4.5); CREATININE 1.62 mg/dL (0.55-1.02); POTASSIUM 3.9 mmol/L (3.5-5.1); TOTAL PROTEIN 7.5 gm/dL (6.4-8.2)
[2017-08-14 08:00] VITALS: BP 101/42
[2017-08-14 12:00] VITALS: BP 116/61
[2017-08-14 15:37] VITALS: BP 106/50
[2017-08-14 20:00] VITALS: BP 117/43
[2017-08-15] VITALS: BP 121/62
[2017-08-15 04:00] VITALS: BP 126/70
[2017-08-15 07:52] LABS: BASO % 0.1 % (0.0-1.0); EOS # 0.1 10*3/uL (0.0-0.4); EOS % 1.2 % (1.0-4.0); HEMATOCRIT 28.5 % (37.0-47.0); HEMOGLOBIN 8.4 g/dl (12.0-16.0); LYMPH # 1.3 10*3/uL (1.3-4.4); LYMPH % 16.2 % (27.0-41.0); MEAN CORPUSCULAR HGB CONC 29.5 g/dl (33.0-37.0); MEAN PLATELET VOLUME 9.9 fl (9.6-12.3); MONO # 0.6 10*3/uL (0.1-1.0); NEUT # 6.2 10*3/uL (2.3-7.9); PLATELET COUNT AUTOMATED 150 10*3/uL (130-400); WHITE BLOOD COUNT 8.3 10*3/uL (4.8-10.8)
[2017-08-15 08:00] VITALS: BP 116/55
[2017-08-15 08:09] LABS: CREATININE 1.94 mg/dL (0.55-1.02); POTASSIUM 3.8 mmol/L (3.5-5.1)
[2017-08-15 15:28] LABS: ABG BASE EXCESS 1.8 mmol/L (-2.0-2.0); ABG HCO3 30.3 mmol/l (22-26); ABG O2 SATURATION 51.3 % (95-97); ARTERIAL BLOOD GAS PH 7.209 (7.35-7.45)
[2017-08-15 15:32] LABS: ARTERIAL BLOOD GAS PCO2 79.3 mmHg (35-45); ARTERIAL BLOOD GAS PO2 33.4 mmHg (80-90)
[2017-08-15 15:42] LABS: ABG BASE EXCESS 1.8 mmol/L (-2.0-2.0); ABG HCO3 29.4 mmol/l (22-26); ABG O2 SATURATION 97.2 % (95-97); ARTERIAL BLOOD GAS PH 7.244 (7.35-7.45)
[2017-08-15 15:45] LABS: ARTERIAL BLOOD GAS PCO2 70.9 mmHg (35-45)
[2017-08-15 16:00] VITALS: BP 125/78
[2017-08-15 18:15] LABS: ABG BASE EXCESS 1.9 mmol/L (-2.0-2.0); ABG HCO3 29.6 mmol/l (22-26); ABG O2 SATURATION 97.4 % (95-97); ARTERIAL BLOOD GAS PH 7.247 (7.35-7.45)
[2017-08-15 18:18] LABS: ARTERIAL BLOOD GAS PCO2 70.7 mmHg (35-45)
[2017-08-15 20:00] VITALS: BP 116/50
[2017-08-16] VITALS: BP 124/53
[2017-08-16 04:00] VITALS: BP 111/60
[2017-08-16 05:01] LABS: CREATININE 2.18 mg/dL (0.55-1.02); POTASSIUM 4.1 mmol/L (3.5-5.1)
[2017-08-16 06:35] LABS: BASO % 0.3 % (0.0-1.0); EOS # 0.1 10*3/uL (0.0-0.4); EOS % 0.9 % (1.0-4.0); HEMATOCRIT 31.1 % (37.0-47.0); LYMPH % 13.1 % (27.0-41.0); MEAN CELL VOLUME 96.3 fl (81.0-99.0); MEAN CORPUSCULAR HGB 27.9 pg (27.0-31.0); MEAN CORPUSCULAR HGB CONC 28.9 g/dl (33.0-37.0); MEAN PLATELET VOLUME 11.1 fl (9.6-12.3); MONO # 0.5 10*3/uL (0.1-1.0); MONO % 6.2 % (3.0-9.0); NEUT # 6.1 10*3/uL (2.3-7.9); NEUT % 78.9 % (47.0-73.0); PLATELET COUNT AUTOMATED 161 10*3/uL (130-400); RED BLOOD COUNT 3.23 10*6/uL (4.10-5.10); RED CELL DISTRI WIDTH 16.1 % (0-14.5); WHITE BLOOD COUNT 7.7 10*3/uL (4.8-10.8)
[2017-08-16 08:00] VITALS: BP 107/54
[2017-08-16 09:25] LABS: ABG BASE EXCESS 1.6 mmol/L (-2.0-2.0); ABG O2 SATURATION 88.2 % (95-97); ARTERIAL BLOOD GAS PCO2 67.3 mmHg (35-45); ARTERIAL BLOOD GAS PH 7.258 (7.35-7.45); ARTERIAL BLOOD GAS PO2 59.9 mmHg (80-90)
[2017-08-16 12:00] VITALS: BP 107/54
[2017-08-16 16:00] VITALS: BP 115/62
[2017-08-16] MEDS ORDERED: KEFZOL1 GM IM (18:02)
[2017-08-16] MEDS ORDERED: METRONIDAZOLE500 M1 PO (18:02)
[2017-08-16 20:00] VITALS: BP 118/61
== END 2017-08-16 21:30 | disposition short-term general hospital (02) | DRG 871 ==
LOC: ED 19:19 → EDHOLD 21:33 → ICCU 21:33 → EDHOLD 21:34 → ICCU 22:07
PROVIDERS: Emergency Medicine Emergency Medical Services; Family Medicine; Internal Medicine; Internal Medicine Cardiovascular Disease; Internal Medicine Critical Care Medicine; Student in an Organized Health Care Education/Training Program
PROC: 5A09357 Assistance with Respiratory Ventilation, Less than 24 Consecutive Hours, Continuous Positive Airway Pressure (ICD-10-PCS; principal; 2017-08-11)
PROC: 5A09357 Assistance with Respiratory Ventilation, Less than 24 Consecutive Hours, Continuous Positive Airway Pressure (ICD-10-PCS; 2017-08-12)
PROC: 5A09357 Assistance with Respiratory Ventilation, Less than 24 Consecutive Hours, Continuous Positive Airway Pressure (ICD-10-PCS; 2017-08-13)
PROC: 5A09357 Assistance with Respiratory Ventilation, Less than 24 Consecutive Hours, Continuous Positive Airway Pressure (ICD-10-PCS; 2017-08-15)
PROC: 5A09357 Assistance with Respiratory Ventilation, Less than 24 Consecutive Hours, Continuous Positive Airway Pressure (ICD-10-PCS; 2017-08-16)
DX: A41.9 Sepsis, unspecified organism (principal); N17.0 Acute kidney failure with tubular necrosis; E43 Unspecified severe protein-calorie malnutrition; I50.31 Acute diastolic (congestive) heart failure; J96.21 Acute and chronic respiratory failure with hypoxia; D68.9 Coagulation defect, unspecified; J81.0 Acute pulmonary edema; E11.22 Type 2 diabetes mellitus with diabetic chronic kidney disease; J96.22 Acute and chronic respiratory failure with hypercapnia; I13.0 Hypertensive heart and chronic kidney disease with heart failure and stage 1 through stage 4 chronic kidney disease, or unspecified chronic kidney disease; K92.1 Melena; I48.92 Unspecified atrial flutter; Z68.44 Body mass index [BMI] 60.0-69.9, adult; E11.65 Type 2 diabetes mellitus with hyperglycemia; I95.2 Hypotension due to drugs; E66.01 Morbid (severe) obesity due to excess calories; B37.2 Candidiasis of skin and nail; D64.9 Anemia, unspecified; I48.0 Paroxysmal atrial fibrillation; B37.3 Candidiasis of vulva and vagina; D72.810 Lymphocytopenia; R65.20 Severe sepsis without septic shock; S31.109A Unspecified open wound of abdominal wall, unspecified quadrant without penetration into peritoneal cavity, initial encounter; K64.9 Unspecified hemorrhoids; N61.0 Mastitis without abscess; E83.41 Hypermagnesemia; J44.9 Chronic obstructive pulmonary disease, unspecified; K21.9 Gastro-esophageal reflux disease without esophagitis; N18.9 Chronic kidney disease, unspecified; R74.0 Nonspecific elevation of levels of transaminase and lactic acid dehydrogenase [LDH]; I89.0 Lymphedema, not elsewhere classified; Z90.49 Acquired absence of other specified parts of digestive tract; Z82.49 Family history of ischemic heart disease and other diseases of the circulatory system; Z88.0 Allergy status to penicillin; Z91.040 Latex allergy status; Z79.899 Other long term (current) drug therapy; Z95.0 Presence of cardiac pacemaker; X58.XXXA Exposure to other specified factors, initial encounter; Y93.89 Activity, other specified; Y92.89 Other specified places as the place of occurrence of the external cause; Y99.8 Other external cause status

== ENCOUNTER 2019-06-30 14:03 | Emergency (ER) | payer OTHER ==
[~2019-06-30] VITALS: Ht 152.4 cm; Wt 91.2 kg
[~2019-06-30 14:03] MED LIST: DOC-Q-LACE100 MG PO; ELIQUIS5 M1 PO; GOOD NEIGHBOR P10 M1 PO; KEFZOL1 GM IM; LASIX40 MG PO; MAPAP500 MG PO; METOPROLOL TART75 MG PO; METRONIDAZOLE500 M1 PO; OMEPRAZOLE40 MG PO; PROAIR HFA8.5 GM INH; VITAMIN D31000 UNI1 PO; WOMEN'S DAILY1 EAC1 PO
[2019-06-30 14:46] LABS: BASO % 0.4 % (0.0-1.0); EOS # 0.1 10*3/uL (0.0-0.4); EOS % 1.9 % (1.0-4.0); HEMOGLOBIN 9.4 g/dl (12.0-16.0); LYMPH # 1.9 10*3/uL (1.3-4.4); LYMPH % 35.9 % (27.0-41.0); MEAN CELL VOLUME 104.3 fl (81.0-99.0); MEAN CORPUSCULAR HGB 33.8 pg (27.0-31.0); MEAN CORPUSCULAR HGB CONC 32.4 g/dl (33.0-37.0); MEAN PLATELET VOLUME 10.1 fl (9.6-12.3); MONO # 0.7 10*3/uL (0.1-1.0); MONO % 12.8 % (3.0-9.0); NEUT # 2.6 10*3/uL (2.3-7.9); NEUT % 48.8 % (47.0-73.0); PLATELET COUNT AUTOMATED 143 10*3/uL (130-400); RED BLOOD COUNT 2.78 10*6/uL (4.10-5.10); RED CELL DISTRI WIDTH 15.9 % (0-14.5); WHITE BLOOD COUNT 5.3 10*3/uL (4.8-10.8)
[2019-06-30 15:02] LABS: ALBUMIN 2.7 gm/dl (3.1-4.5); CREATININE 5.75 mg/dL (0.55-1.02); POTASSIUM 3.9 mmol/L (3.5-5.1); TOTAL PROTEIN 7.7 gm/dL (6.4-8.2)
== END 2019-06-30 18:21 | disposition short-term general hospital (02) ==
LOC: ED 14:03
PROVIDERS: Nurse Practitioner Family
DX: N93.9 Abnormal uterine and vaginal bleeding, unspecified (principal); I48.91 Unspecified atrial fibrillation; E11.9 Type 2 diabetes mellitus without complications; E66.9 Obesity, unspecified; I50.9 Heart failure, unspecified; J44.9 Chronic obstructive pulmonary disease, unspecified; Z88.0 Allergy status to penicillin; Z91.040 Latex allergy status; Z79.899 Other long term (current) drug therapy; Z90.49 Acquired absence of other specified parts of digestive tract